=== PATIENT | female | born 1965 | race Two or more races ===

== ENCOUNTER 2019-06-17 21:03 | Emergency (ER) | payer SELFPAY ==
[2019-06-17] MEDS ORDERED: Ketorolac 30 MG/ML SDV IVPUSH ONE (22:18)
[2019-06-17] MEDS ORDERED: Ondansetron 4 MG/2 ML SDV IVPUSH ONE (22:18)
[2019-06-17] MEDS ORDERED: Sodium Chloride 0.9% 1,000 ML IV SCH (22:30)
[2019-06-17] MEDS: Sodium Chloride 0.9% 10 ML Syringe FLUSH PRN (22:50)
--- NOTE | 2019-06-17 23:36 | EDM.PDOC ---
ED HPI GENERAL MEDICAL PROBLEM - General Chief Complaint: Respiratory Problem Stated Complaint: FEVER ACHES CHILLS AND HEADACHES SINCE WEDNESDAY Time Seen by Provider: 06/17/19 21:25 Source of Information: Reports: Patient History Limitations: Reports: No Limitations - History of Present Illness INITIAL COMMENTS - FREE TEXT/NARRATIVE: Patient is a 54-year-old female who presents with her son with complaints of fever, chills, body aches, and headache since Wednesday. She complains of some mild nausea but she has had no vomiting or diarrhea. She has had no cough, SOB , or other respiratory symptoms. She did have some burning with urination I Wednesday which she states resolved. She does not have a history of urinary tract infections. She complains of some low back pain and suprapubic pain. She also has some generalized mid and upper abdominal pain that "moves from side to side ". She has no chronic health problems and does not take any daily medications. - Related Data Allergies Allergy/AdvReac Type Severity Reaction Status Date / Time No Known Allergies Allergy Verified 06/17/19 21:22 Home Meds: Home Meds Ciprofloxacin HCl [Cipro] 500 mg PO BID #14 tablet 06/18/19 [Rx] Past Medical History - Past Health History Medical/Surgical History: Denies Medical/Surgical History Social & Family History - Tobacco Use Smoking Status *Q: Never Smoker Second Hand Smoke Exposure: No - Caffeine Use Caffeine Use: Reports: None - Recreational Drug Use Recreational Drug Use: No ED ROS GENERAL - Review of Systems Review Of Systems: See Below Constitutional: Reports: Fever, Chills, Fatigue, Decreased Appetite HEENT: Reports: No Symptoms Respiratory: Reports: No Symptoms Cardiovascular: Reports: No Symptoms Endocrine: Reports: No Symptoms GI/Abdominal: Reports: Abdominal Pain (Generalized, "moves from side to side ".) , Nausea. Denies: Diarrhea, Vomiting : Reports: Dysuria (Last Wednesday, but resolved.), Other (Low back pain). Denies: Frequency Musculoskeletal: Reports: No Symptoms Skin: Reports: No Symptoms Neurological: Reports: No Symptoms Psychiatric: Reports: No Symptoms Hematologic/Lymphatic: Reports: No Symptoms Immunologic: Reports: No Symptoms ED EXAM, GENERAL - Physical Exam Exam: See Below Exam Limited By: No Limitations General Appearance: Alert, WD/WN, No Apparent Distress Ears: Normal External Exam, Normal Canal, Hearing Grossly Normal, Normal TMs Throat/Mouth: Normal Inspection, Normal Lips, Normal Teeth, Normal Gums, Normal Oropharynx, Normal Voice, No Airway Compromise Neck: Normal Inspection, Supple, Non-Tender, Full Range of Motion Respiratory/Chest: No Respiratory Distress, Lungs Clear, Normal Breath Sounds, No Accessory Muscle Use, Chest Non-Tender Cardiovascular: Normal Peripheral Pulses, Regular Rate, Rhythm, No Edema, No Gallop, No JVD, No Murmur, No Rub GI/Abdominal: Normal Bowel Sounds, Soft, No Organomegaly, No Distention, No Abnormal Bruit, No Mass, Pelvis Stable, Tender (Generalized tenderness throughout, tenderness increased suprapubicly) Back Exam: Normal Inspection, Full Range of Motion, CVA Tenderness (R). No: CVA Tenderness (L) Neurological: Alert, Oriented, CN II-XII Intact, Normal Cognition, Normal Gait, Normal Reflexes, No Motor/Sensory Deficits Psychiatric: Normal Affect, Normal Mood Skin Exam: Warm, Dry, Intact, Normal Color, No Rash Course - Vital Signs Last Recorded V/S: Last Vital Signs Temp 101.4 F H 06/18/19 01:08 Pulse 95 06/18/19 01:08 Resp 18 06/18/19 01:08 BP 126/75 06/18/19 01:08 Pulse Ox 93 L 06/18/19 01:08 - Orders/Labs/Meds Orders: Active Orders 24 hr Category Date Time Status Peripheral IV Care [RC] . DIRECTED Care 06/17/19 22:18 Active Isolation [COMM] Routine Oth 06/17/19 21:24 Ordered Peripheral IV Insertion Adult [OM.PC] Stat Oth 06/17/19 22:17 Ordered Labs: Laboratory Tests 06/17/19 06/17/19 06/17/19 Range/Units 22:45 22:45 22:45 WBC 7.70 (3.98-10.04) K/mm3 RBC 4.55 (3.98-5.22) M/mm3 Hgb 13.0 (11.2-15.7) gm/dl Hct 39.5 (34.1-44.9) % MCV 86.8 (79.4-94.8) fl MCH 28.6 (25.6-32.2) pg MCHC 32.9 (32.2-35.5) g/dl RDW Std Deviation 41.1 (36.4-46.3) fL Plt Count 254 (182-369) K/mm3 MPV 9.6 (9.4-12.3) fl Neut % (Auto) 77.1 H (34.0-71.1) % Lymph % (Auto) 14.0 L (19.3-51.7) % [place] % (Auto) 8.2 (4.7-12.5) % Eos % (Auto) 0 L (0.7-5.8) Baso % (Auto) 0.3 (0.1-1.2) % Neut # (Auto) 5.94 (1.56-6.13) K/mm3 Lymph # (Auto) 1.08 L (1.18-3.74) K/mm3 [place] # (Auto) 0.63 H (0.24-0.36) K/mm3 Eos # (Auto) 0.00 L (0.04-0.36) K/mm3 Baso # (Auto) 0.02 (0.01-0.08) K/mm3 Sodium 139 (136-145) mEq/L Potassium 3.4 L (3.5-5.1) mEq/L Chloride 102 (98-107) mEq/L Carbon Dioxide 29 (21-32) mEq/L Anion Gap 11.4 (5-15) BUN 6 L (7-18) mg/dL Creatinine 0.7 (0.55-1.02) mg/dL Est Cr Clr Drug Dosing TNP Estimated GFR (MDRD) > 60 (>60) mL/min BUN/Creatinine Ratio 8.6 L (14-18) Glucose 116 H (74-106) mg/dL Calcium 8.7 (8.5-10.1) mg/dL Total Bilirubin 0.3 (0.2-1.0) mg/dL AST 25 (15-37) U/L ALT 46 (14-59) U/L Alkaline Phosphatase 137 H (46-116) U/L C-Reactive Protein 29.6 H* (<1.0) mg/dL Total Protein 7.3 (6.4-8.2) g/dl Albumin 3.1 L (3.4-5.0) g/dl Globulin 4.2 gm/dL Albumin/Globulin Ratio 0.7 L (1-2) Lipase 80 (73-393) U/L Urine Color Yellow (Yellow) Urine Appearance Clear (Clear) Urine pH 7.5 (5.0-8.0) Ur Specific [place] 1.020 (1.005-1.030) Urine Protein Negative (Negative) Urine Glucose (UA) Negative (Negative) Urine Ketones Negative (Negative) Urine Occult Blood Negative (Negative) Urine Nitrite Negative (Negative) Urine Bilirubin Negative (Negative) Urine Urobilinogen 1.0 (0.2-1.0) Ur Leukocyte Esterase 1+ H (Negative) Urine RBC Not seen (0-5) /hpf Urine WBC 5-10 H (0-5) /hpf Ur Squamous Epith Cells 0-5 (0-5) /hpf Urine Bacteria Rare (FEW) /hpf Urine Mucus Not seen (FEW) /hpf Meds: Medications Discontinued Medications Generic Name Dose Route Start Last Admin Trade Name Freq PRN Reason Stop Dose Admin Hydromorphone HCl 0.5 mg 06/17/19 23:47 06/18/19 00:32 Dilaudid IVPUSH 06/17/19 23:48 0.5 mg ONETIME ONE Administration Sodium Chloride 1,000 mls @ 150 mls/hr 06/17/19 22:30 06/17/19 22:46 Normal Saline IV 150 mls/hr ASDIRECTED [place] Administration Iopamidol 100 ml 06/18/19 01:00 06/18/19 00:17 Isovue-300 (61%) IVPUSH 06/18/19 01:01 100 ml ONETIME ONE Administration Ketorolac Tromethamine 30 mg 06/17/19 22:18 06/17/19 22:45 Toradol IVPUSH 06/17/19 22:19 30 mg ONETIME ONE Administration Levofloxacin 750 mg 06/18/19 00:57 06/18/19 01:17 Levaquin PO 06/18/19 00:58 750 mg ONETIME ONE Administration Ondansetron HCl 4 mg 06/17/19 22:18 06/17/19 22:43 Zofran IVPUSH 06/17/19 22:19 4 mg ONETIME ONE Administration Sodium Chloride 10 ml 06/17/19 22:18 06/18/19 00:17 Saline Flush FLUSH 10 ml ASDIRECTED PRN Administration Keep Vein Open - Re-Assessments/Exams Free Text/Narrative Re-Assessment/Exam: 06/18/19 00:49 CBC was found to be normal. White count was normal at 7.7. Neutrophils normal at 5.94. CMP was found to be grossly unremarkable. CRP is elevated at 29.6. Urinalysis is positive for infection with 1+ leukocyte esterases wrong as well as 5-[address] of the abdomen pelvis was completed and no abnormalities were found. We will treat her for pyelonephritis based on her symptoms of low back pain, positive urine, and right-sided CVA tenderness. I will request patient to follow-up in the clinic as I do feel that her elevated CRP at 29.6 is out of proportion to the level of infection otherwise displayed in her work-up. Concern would be for an underlying viral infection, vasculitis or possible malignancy. She has been resting well and did verbalize relief from her body aches, headache, abdominal pain, and low back pain. She will be given a dose of oral Levaquin in the emergency department tonight. I will write a prescription for Cipro. Recommend that she call to schedule follow-up appointment with a primary care provider in the clinic next week for a follow- up. Discharge instructions as documented. Departure - Departure Time of Disposition: 00:58 Disposition: Home, Self-Care 01 Condition: Fair Clinical Impression: Pyelonephritis - Discharge Information *PRESCRIPTION DRUG MONITORING PROGRAM REVIEWED*: No *COPY OF PRESCRIPTION DRUG MONITORING REPORT IN PATIENT BELLA: No Prescriptions: Ciprofloxacin HCl [Cipro] 500 mg PO BID #14 tablet Instructions: Pyelonephritis, Adult, [id number] Referrals: PCP,None [Primary Care Provider] - Forms: ED Department Discharge Additional Instructions: You were seen in the emergency department today for fever, chills, nausea, abdominal pain, and headache since Wednesday. Your work-up included blood work, urinalysis, and a CT of your abdomen. The results of your work-up indicated that you have a urinary tract infection and based on your exam findings, it is likely that the infection is also present in your kidney. CT of your abdomen was negative for any acute abnormalities. Your inflammatory marker, CRP, was found to be elevated. You have been started on an antibiotic for your kidney infection. The prescription has been sent electronically to [facility]. They are open tomorrow from 12-4. Take this medication as prescribed. You may use [id number] Tylenol or ibuprofen as needed for any fever pain. Recommend that you increase your oral fluid intake over the next few days. Diet may be as tolerated. If you should experience any worsening symptoms or fail to improve over the next couple days as expected, would recommend that you return to the emergency department. I do recommend follow-up in the clinic with regard to your elevated CRP to ensure that it improves after the infection is treated and complete further testing as needed. You may call Wednesday to schedule a follow-up appointment in the clinic. The number to schedule is [phone]. Sepsis Event Note - Evaluation Sepsis Screening Result: No Definite Risk - Focused Exam Vital Signs: Vital Signs Temp Pulse Resp BP Pulse Ox 06/18/19 01:08 101.4 F H 95 18 126/75 93 L Date Exam was Performed: 06/18/19 Time Exam was Performed: 10:52 - My Orders Last 24 Hours: My Active Orders 06/17/19 21:24 Isolation [COMM] Routine 06/17/19 22:17 Peripheral IV Insertion Adult [OM.PC] Stat 06/17/19 22:18 Peripheral IV Care [RC] . DIRECTED - Assessment/Plan Last 24 Hours: My Active Orders 06/17/19 21:24 Isolation [COMM] Routine 06/17/19 22:17 Peripheral IV Insertion Adult [OM.PC] Stat 06/17/19 22:18 Peripheral IV Care [RC] . DIRECTED
[2019-06-17] MEDS ORDERED: HYDROmorphone 0.5 MG/0.5 ML Syringe IVPUSH ONE (23:47)
[2019-06-18] MEDS: Sodium Chloride 0.9% 10 ML Syringe FLUSH PRN (00:17)
[2019-06-18] MEDS ORDERED: Levofloxacin 750 MG Tab PO ONE (00:57)
[2019-06-18] MEDS ORDERED: Diatrizoate Meglumine/Diatrizoate Sodium 37% 120 ML Bottle PO ONE (01:00)
[2019-06-18] MEDS ORDERED: Iopamidol 612 MG/ML 100 ML Bottle IVPUSH ONE (01:00)
--- NOTE | 2019-06-18 07:56 | CT ---
CT abdomen and pelvis Technique: Multiple axial sections were obtained from slightly below the top of the liver inferiorly through the pubic symphysis. Intravenous contrast was utilized. No oral contrast has been given. Delayed images were also obtained through the bladder. Comparison: No prior abdominal imaging is available. Findings: Right kidney appears slightly swollen as compared to the left kidney. Enhancement appears to be slightly abnormal as compared to the left kidney. No ureteral calculi are seen. Several small nonobstructing calculi are noted within the lower right kidney. Visualized lung bases shows minimal dependent atelectasis posteriorly. Liver contains no focal parenchymal abnormality. Spleen appears within normal limits. Adrenal glands show no nodule. Pancreas is within normal limits. Gallbladder contains no calcified gallstones. Aorta shows mild atherosclerotic calcification. No retroperitoneal adenopathy or mesenteric abnormalities are seen. Appendix is seen and is normal. Mild diverticulosis is seen within the sigmoid colon without inflammatory change of diverticulitis. No pelvic mass or adenopathy is seen. Delayed images shows contrast within the distal ureters and within the bladder. Bone window settings were reviewed. No acute osseous finding is appreciated. Small fat-containing umbilical hernia is noted. Impression: 1. Slightly abnormal enhancement of the right kidney as noted above. Difficult to exclude right sided pyelonephritis. Please correlate if there are any corresponding clinical symptoms. 2. Several small nonobstructing calculi within the lower right kidney. 3. Other findings believed to be incidental as noted above. Diagnostic code #3 Questionable disagree with preliminary report issued by [facility] possible right sided pyelonephritis, please correlate) ([facility] preliminary report dictated on 06/18/19, 1:40 AM Central Time) Study was dictated in MDT
== END 2019-06-18 01:26 | disposition home or self-care (01) ==
LOC: JD.ED 21:03
DX: N12 Tubulo-interstitial nephritis, not specified as acute or chronic (principal)
CPT/HCPCS: 36415; 74177; 80053; 81001; 83690; 85025; 86140; 87086; 87804; 96361; 96374; 96375; 99284; A9270; J1170; J1885; J2405; J7030; Q9967

== ENCOUNTER 2022-08-19 20:36 | Emergency (ER) | payer BC ==
[2022-08-19] MEDS ORDERED: Sodium Chloride 0.9% 1,000 ML IV ONE (21:23)
[2022-08-19] MEDS ORDERED: Iopamidol 612 MG/ML 100 ML Bottle IVPUSH ONE (21:29)
[2022-08-19] MEDS ORDERED: Sodium Chloride 0.9% 10 ML Syringe FLUSH ONE (21:29)
[2022-08-19 21:30] LABS: HEMATOCRIT 42.1 % (34.1-44.9); HEMOGLOBIN 13.7 gm/dl (11.2-15.7); MEAN CORPUSCULAR HEMOGLOBIN 27.1 pg (25.6-32.2); MEAN CORPUSCULAR HGB CONC 32.5 g/dl (32.2-35.5); MEAN CORPUSCULAR VOLUME 83.2 fl (79.4-94.8); MEAN PLATELET VOLUME 10.1 fl (9.4-12.3); PLATELET COUNT,PLT 359 K/mm3 (182-369); RED BLOOD CELL COUNT 5.06 M/mm3 (3.98-5.22); WHITE BLOOD CELL COUNT,WBC 11.65 K/mm3 (3.98-10.04)
[2022-08-19 21:42] LABS: A/G RATIO 1.3 (1-2); ALANINE AMINOTRANSFERASE,ALT 47 U/L (14-59); ALBUMIN 4.2 g/dl (3.4-5.0); ALKALINE PHOSPHATASE 93 U/L (46-116); ANION GAP 10.4 (5-15); ASPARTATE AMNIOTRANSFERASE,AST 23 U/L (15-37); BILIRUBIN TOTAL 0.5 mg/dL (0.2-1.0); BLOOD UREA NITROGEN,BUN 14 mg/dL (7-18); C-REACTIVE PROTEIN < 0.2 mg/dL (<1.0); CARBON DIOXIDE,CO2 31 mEq/L (21-32); CHLORIDE,CL 99 mEq/L (98-107); CREATININE 0.7 mg/dL (0.55-1.02); EST CRCL DRUG DOSING (CG) 80.75 mL/min; ESTIMATED GFR 101 mL/min (>60); GLUCOSE RANDOM 128 mg/dL (70-99); LIPASE 58 U/L (73-393); MAGNESIUM 1.5 mg/dL (1.8-2.4); POTASSIUM,K 4.4 mEq/L (3.5-5.1); PROTEIN TOTAL,TP 7.5 g/dl (6.4-8.2); SODIUM,NA 136 mEq/L (136-145)
[2022-08-19 21:46] LABS: APPEARANCE,URINE CLEAR (Clear); BILIRUBIN,URINE NEGATIVE (Negative); COLOR,URINE YELLOW (Yellow); GLUCOSE,URINE NEGATIVE (Negative); KETONES,URINE 2+ (Negative); LEUKOCYTE ESTERASE,URINE NEGATIVE (Negative); NITRITE,URINE NEGATIVE (Negative); OCCULT BLOOD,URINE NEGATIVE (Negative); PROTEIN,URINE TRACE (Negative); UROBILINOGEN,URINE 0.2 (0.2-1.0)
[2022-08-19 22:07] LABS: BACTERIA,URINE FEW /hpf (FEW); MUCUS,URINE FEW /hpf (FEW); RBC,URINE 0-5 /hpf (0-5); SQUAMOUS EPITHELIAL CELLS,UR 0-5 /hpf (0-5); WBC,URINE 0-5 /hpf (0-5)
[2022-08-19 22:20] LABS: BAND PERCENT MAN 1 % (0-10); BASOPHILS PERCENT MAN 0 (0.1-1.2); EOSINOPHILS PERCENT MAN 0 % (0.7-5.8); LYMPHOCYTES % ATYPICAL MANUAL 0 %; LYMPHOCYTES PERCENT MAN 15 % (20-40); MONOCYTES PERCENT MAN 3 % (2-10); PLATELET COUNT ESTIMATE ADEQUATE
[2022-08-19 22:26] LABS: CORONAVIRUS COVID-19 NAA NEGATIVE (NEGATIVE); INFLUENZA A NAA NEGATIVE (NEGATIVE); RESPIRATORY SYNCYTIAL VIR NAA NEGATIVE (NEGATIVE)
== END 2022-08-20 00:13 | disposition home or self-care (01) ==
LOC: JD.ED 20:36
DX: E83.42 Hypomagnesemia (principal); R11.2 Nausea with vomiting, unspecified; R51.9 Headache, unspecified; G89.29 Other chronic pain; Z20.822 Contact with and (suspected) exposure to COVID-19; Z86.16 Personal history of COVID-19; Z79.899 Other long term (current) drug therapy
CPT/HCPCS: 0241U; 36415; 74177; 74177-26; 80053; 81001; 83690; 83735; 85007; 85027; 86140; 96360; 96361; 99284; 99284-25; J3490; J7030; Q9967

== ENCOUNTER 2024-05-28 20:37 | Emergency (ER) | payer BC | END 2024-05-28 21:46 | disposition home or self-care (01) | LOC: JD.ED 20:37 | DX: M25.561 Pain in right knee (principal); Z79.899 Other long term (current) drug therapy; Z86.16 Personal history of COVID-19 | CPT/HCPCS: 99283 ==

== ENCOUNTER 2024-07-27 08:52 | Day surgery (SDC) | payer BC, OTHER ==
[~2024-07-27 08:52] MED LIST: Sodium Chloride 0.9% 10 ML Syringe FLUSH PRN; Sodium Chloride 0.9% 10 ML Syringe FLUSH SCH
[2024-07-27] MEDS: Lactated Ringers 1,000 ML IV SCH (09:25)
[2024-07-27] MEDS ORDERED: Ketorolac 30 MG/ML SDV ONE (09:31)
[2024-07-27] MEDS ORDERED: Propofol 200 MG/20 ML SDV ONE (09:31)
[2024-07-27] MEDS ORDERED: Lidocaine 2% 5 ML SDV ONE (09:31)
[2024-07-27] MEDS ORDERED: ceFAZolin 2 GM Vial ONE (09:31)
[2024-07-27] MEDS ORDERED: Ondansetron 4 MG/2 ML SDV ONE ×2 (09:31→11:00)
[2024-07-27] MEDS ORDERED: fentaNYL 100 MCG/2 ML SDV ONE (09:31)
[2024-07-27] MEDS ORDERED: Dexamethasone 4 MG/ML 5 ML MDV ONE (09:31)
[2024-07-27] MEDS ORDERED: Bupivacaine 0.25% 10 ML SDV ONE (11:17)
[2024-07-27] MEDS: EPINEPHrine 1 MG/ML SDV ONE (11:23)
[2024-07-27] MEDS ORDERED: Lactated Ringers 1,000 ML ONE (11:28)
[2024-07-27] MEDS: Acetaminophen/HYDROcodone 325-5 MG Tab PO PRN (13:10)
== END 2024-07-27 15:20 | disposition home or self-care (01) ==
LOC: JD.SDS 08:52
PROVIDERS: ATTEND Orthopaedic Surgery
DX: S83.241A Other tear of medial meniscus, current injury, right knee, initial encounter (principal); K21.9 Gastro-esophageal reflux disease without esophagitis; Z79.899 Other long term (current) drug therapy; X58.XXXA Exposure to other specified factors, initial encounter
CPT/HCPCS: 29881; A9270; J0171; J0665; J0690; J1100; J1885; J2003; J2405; J2704; J3010; J7120; 01400